=== PATIENT | male | born 1990 | race Caucasian/White ===

== ENCOUNTER → 2016-11-02 | Outpatient (CLI) | payer OTHER ==
--- NOTE | 2016-11-05 05:19 | DIAGNOSTIC IMAGING REPORT ---
PROCEDURE: XR SHOULDER INJECTION (PRE MR) INDICATION: RT SHOULDER PAIN TECHNIQUE: The patient was advised of the usual risks and complications including infection, bleeding and allergy. Supine RPO position. Following sterile preparation and 1% lidocaine anesthetic, fluoroscopic guidance 1.9 minutes, 1461.63 mGy) was utilized to place a 22-gauge spinal needle into the ventral right glenohumeral joint. A 10.1 mL solution (2.5 mL Isovue 200, 2.5 mL 1% lidocaine, 2.5 mL 0.5% Marcaine, 2.5 mL normal saline, 0.1 mL gadolinium) was infused. Subsequently, 2 mL 40 mg/mL Kenalog was infused and the needle was withdrawn. COMPARISON: Comparison is made to [facility] radiographs of the shoulders on 10/24/2016. FINDINGS: Six AP views in neutral, internal and external rotation. Confirmation of intraarticular injection. There is no evidence of rotator cuff tear. Findings suggest probable tear of the superior cartilaginous labrum. The patient tolerated the procedure reasonably well and was transferred to MRI in satisfactory condition with instructions to resume routine activity the following day, and to call for any untoward symptoms (increasing pain/swelling). IMPRESSION: 1. Successful fluoroscopically guided diagnostic/therapeutic injection of the right glenohumeral joint (pre MRI). 2. Probable tear of the superior cartilaginous labrum. 3. Otherwise negative arthrogram of the right shoulder. 4. MR arthrography is pending.
--- NOTE | 2016-11-07 15:37 | DIAGNOSTIC IMAGING REPORT ---
PROCEDURE: MR UPPER EXT JOINT W/CONT-RT INDICATION: RT SHOULDER PAIN TECHNIQUE: Intraarticular contrast/gadolinium injected earlier in the day. PD, FAT-SAT PD, and FAT-SAT T1 sagittal oblique images. PD, FAT-SAT PD, and FAT-SAT T1 coronal oblique images. T1, FAT-SAT T1, and gradient axial images. COMPARISON: None. FINDINGS: Mild motion partially limits study. Mild caudal and positive angulation of the type 2 acromion results in mild to moderate impingement. There is no evidence of coracoid impingement. Right acromioclavicular joint appears normal. There is mild to moderate tendinosis of the ventral rotator cuff with findings suggesting partial thickness internal surface tear. No evidence of full- thickness tear. Allowing for motion, there is mild fraying and irregularity of the anterior superior cartilaginous labrum. The rest of the labrum is normal. Biceps tendon is intact. IMPRESSION: 1. Mild caudal and positive angulation of type 2 acromion results in mild to moderate impingement. 2. There is mild to moderate tendinosis of the ventral rotator cuff with findings suggesting anterior partial thickness internal surface tear. 3. There is fraying and irregularity of the anterior superior cartilaginous labrum suspicious for subtle labral tear. 4. Report alert called to the office Dr. Ewing.
== END ==
LOC: XR SRH 12:44
PROC: BP181ZZ Fluoroscopy of Right Shoulder using Low Osmolar Contrast (ICD-10-PCS; principal; 2016-11-02)
DX: M25.511 Pain in right shoulder (principal)